=== PATIENT | female | born 1955 | race Caucasian/White ===

== ENCOUNTER 2017-02-13 19:41 | Emergency (ER) | payer OTHER ==
--- NOTE | ~2017-02-13 | CR63 ---
[facility]. [facility] A Service of [facility] & [facility] RADIOLOGY TEXT RESULTS PATIENT: MILAN UP LOCATION: SED : 53 UNIT #: [id number] AGE: [address]: TOMI BIRMINGHAM SEX: F ORDER DR: [id number] [address] [address] [id number] MR#: [id number] Acc #: [id number] NAME: MILAN UP : 1955 SEX: F STUDY DATE/TIME: 02/13/2017 21:10 UNIT: SED ROOM: STUDY DESCRIPTION: CR Chest 2 View Attending Physician: Tomi Birmingham Referring Physician: Tomi Birmingham Ordering Physician: Luis Mckeon M.D. Primary Care Physician: Saleem Roberts Aprn MEDICAL IMAGING REPORT This report is preliminary unless electronic signature is present. EXAM PA and lateral chest HISTORY Chest pain and hypertension today. FINDINGS Two views of the chest demonstrate the cardiac size and pulmonary vascularity are normal. No infiltrates or effusions. Minimal hypertrophic spurring in the mid thoracic spine. IMPRESSION No acute findings. No active disease. Dictated by... Ant Lynn M.D. THIS IS AN ELECTRONICALLY VERIFIED REPORT Ant Lynn M.D. at 02/14/2017 3:15 PM DFL/patricia TD: 02/14/2017 09:01 JOB #: [id number] MEDICAL IMAGING REPORT Page 1 of 1
--- NOTE | ~2017-02-13 | CT71 ---
[facility] A Service of [facility] RADIOLOGY TEXT RESULTS PATIENT: MILAN UP LOCATION: SED : 53 UNIT #: [id number] AGE: [address]: TOMI BIRMINGHAM SEX: F ORDER DR: [id number] [place] [id number] E MR#: [id number] Acc #: [id number] NAME: MILAN UP. : 1955 SEX: F STUDY DATE/TIME: 02/13/2017 21:14 UNIT: SED ROOM: STUDY DESCRIPTION: CT Head Wo Contrast Attending Physician: Tomi Birmingham Referring Physician: Tomi Birmingham Ordering Physician: Physician Non-Staff Primary Care Physician: Saleem Roberts Aprn MEDICAL IMAGING REPORT This report is preliminary unless electronic signature is present. EXAM CT head without contrast dated 02/13/2017. COMPARISON CT head without contrast dated 04/01/2016. HISTORY Headache and shortness of air today. High blood pressure. TECHNIQUE CT of the head was obtained without contrast in the axial plane as per the protocol. Axial noncontrast images were obtained from the skull base to the vertex. This CT exam was performed with one or more of the following radiation dose reduction techniques: automatic exposure control, adjustment of mA and/or kV according to patient size, and iterative reconstruction. FINDINGS Ventricular size and configuration are normal. There is no evidence of acute infarct or hemorrhage. There are no extraaxial fluid collections. No mass lesion or mass effect is seen. There are no skull fractures. IMPRESSION Normal noncontrast head CT. Dictated by... Alessio Holt M.D. THIS IS AN ELECTRONICALLY VERIFIED REPORT Alessio Holt M.D. at 02/14/2017 9:05 PM [facility] A Service of [facility] RADIOLOGY TEXT RESULTS PATIENT: MILAN UP LOCATION: SED : 53 UNIT #: [id number] AGE: [address]: TOMI BIRMINGHAM SEX: F ORDER DR: Ricky TD: 02/14/2017 09:07 JOB #: [id number] MEDICAL IMAGING REPORT Page 1 of 1
--- NOTE | ~2017-02-13 | EKG ---
PATIENT: MILAN UP UNIT #: [id number] Ventricular Rate: 64 BPM Atrial Rate: 64 BPM P-R Interval: 172 ms QRS Duration: 84 ms Q-T Interval: 440 ms QTC Calculation(Bezet): 453 ms P [place]: 30 degrees Calculated R [place]: -9 degrees Calculated T [place]: 57 degrees Diagnosis Line: Normal sinus rhythm Diagnosis Line: Cannot rule out Anterior infarct , age Diagnosis Line: undetermined Diagnosis Line: Abnormal ECG Diagnosis Line: When compared with ECG of 20-JUN-2014 09:24, Diagnosis Line: QRS axis Shifted left Diagnosis Line: Nonspecific T wave abnormality no longer evident Diagnosis Line: in Lateral leads Diagnosis Line: Confirmed by KIERAN MACKENZIE MD ([id number]) on Diagnosis Line: 02/16/2017 8:31:05 AM INTERPRETING MD: GURDEEP KIRK
[~2017-02-13 19:41] MED LIST: AMOXICILLIN PO; ASPIRIN81 M2 PO; CELEXA PO; COLESTIPOL PO; DEPAKOTE PO; ESTRACE1 M1 PO; FENOFIBRATE134 MG PO; FLEXERIL10 M1 PO; HCTZ PO; HYDROCHLOROTHIA25 MG PO; IMITREX PO; LEVOTHROID25 MCG PO; LIPITOR40 MG PO; LOPID600 MG PO; LOPRESSOR PO; MEDROL4 MG/DOSE- PO; MELATONIN3 MG PO; METOPROLOL PO; NAPROSYN500 MG PO; NAPROXEN PO; NEXIUM PO; NORFLEX100 M1 PO; NORVASC10 MG PO; OMEPRAZOLE40 M1 PO; PRAVACHOL20 MG PO; PREMARIN PO; PREVACID PO; PRILOSEC PO; PROZAC10 M1 PO; ROBAXIN PO; SKELAXIN PO; SYNTHROID175 MCG PO; SYNTHROID25 MCG PO; TOPAMAX PO; TYLENOL #3 PO; TYLOX 5/500 CAP1 CAP PO; TYLOX1 CAP 5/50 PO; ULTRAM PO; VICODIN 5/1 TAB 5/50 PO; VOLTAREN50 MG PO; VOLTAREN75 MG PO; ZANAFLEX PO; ZANAFLEX4 M1 PO
[2017-02-13] MEDS ORDERED: PRINIVIL20 M1 PO (19:48)
[2017-02-13] MEDS ORDERED: CHLORTHALIDONE25 MG PO (19:48)
[2017-02-13] MEDS ORDERED: LABETALOL HCL200 MG PO (19:48)
[2017-02-13 21:20] LABS: BASOPHIL# 0.1 X10e3 (0-0.3); BASOPHIL% 0.7 % (0-2.5); EOSINOPHIL# 0.1 X10e3 (0-0.7); EOSINOPHIL% 0.9 % (0.0-7.0); HEMOGLOBIN 12.6 gm/dL (12.0-16.0); LYMPHOCYTE# 2.7 X10e3 (1.0-3.5); LYMPHOCYTE% 29.4 % (17.0-45.0); MEAN CELL VOLUME 84.3 FL (83-96); MEAN CORPUSCULAR HEMOGLOBIN 28.7 PG (28-34); MEAN CORPUSCULAR HGB CONC 34.1 g/dL (30-36); MEAN PLATELET VOLUME 7.9 FL (6.5-11.5); MONOCYTE# 0.7 X10e3 (0-1.0); MONOCYTE% 8.1 % (3.0-12.0); NEUTROPHIL# 5.6 X10e3 (1.5-7.1); NEUTROPHIL% 60.9 % (40-75); PLATELET COUNT 239 X10e3 (140-420); RED BLOOD COUNT 4.39 X10e (3.90-5.30); RED CELL DISTRIBUTION WIDTH 14.2 % (11.0-15.5); WHITE BLOOD COUNT 9.2 X10e3 (4.0-10.5)
[2017-02-13 21:21] LABS: DIFF IND NO
[2017-02-13 21:26] LABS: INR 1.1; PROTHROMBIN TIME (PATIENT) 12.2 SECONDS (9.5-12.4)
[2017-02-13 21:31] LABS: POC - CKMB 1.6 ng/mL (0.0-7.9); POC - TROPONIN <0.05 ng/mL (<=0.05)
[2017-02-13 21:33] LABS: PARTIAL THROMBOPLASTIN TIME 27.6 SECONDS (25.6-38.1)
[2017-02-13 21:35] LABS: ALBUMIN SERUM 4.2 g/dL (3.5-5.0); BILIRUBIN, DIRECT 0.2 mg/dL (0.0-0.2); BILIRUBIN,INDIRECT 0.5 mg/dL (0.0-0.9); BILIRUBIN,TOTAL 0.7 mg/dL (0.2-2.0); BUN/CREATININE RATIO 17.5; CALCIUM SERUM 9.4 mg/dL (8.4-10.2); CREATININE SERUM 0.8 mg/dL (0.6-1.4); GLOM FILT RATE Estimated 79.1 mL/min (>60); POTASSIUM 3.4 mmol/L (3.5-5.1); PROTEIN TOTAL SERUM 7.6 g/dL (6.0-8.3)
== END 2017-02-13 22:58 | disposition home or self-care (01) ==
LOC: SED 19:41
PROVIDERS: Nurse Practitioner
DX: I10 Essential (primary) hypertension (principal); K21.9 Gastro-esophageal reflux disease without esophagitis; F31.9 Bipolar disorder, unspecified; Z90.710 Acquired absence of both cervix and uterus; Z98.890 Other specified postprocedural states; Z90.49 Acquired absence of other specified parts of digestive tract; Z88.8 Allergy status to other drugs, medicaments and biological substances
CPT/HCPCS: 36415; 70450; 71020; 80048; 80076; 82553; 84484; 85025; 85610; 85730; 93005; 96374; 96375; 96376; 99284; J1100; J1885; J2405